=== PATIENT | male | born 1980 ===

== ENCOUNTER 2017-03-17 16:06 | Emergency (ER) | payer MEDICAID, OTHER ==
[2017-03-17 16:10] VITALS: BP 149/74; PULSE 72; RESP 16; TEMP 98.3; O2SAT 100
--- NOTE | 2017-03-17 16:37 | C.PDOC ---
History Of Present Illness 37M presents req detox from rx opioids. he said he has been given suboxone and roxycodone for years and says his doctor "cut me off" today and rec detox. Time Seen by Provider: 03/17/17 16:36 Chief Complaint (Nursing): Substance Abuse Past Medical History Vital Signs: Last Vital Signs Temp 98.3 F 03/17/17 16:10 Pulse 72 03/17/17 16:10 Resp 16 03/17/17 16:10 BP 149/74 03/17/17 16:10 Pulse Ox 100 03/17/17 16:37 - Medical History PMH: Back Problems (herniated/bulging discs) Family History: States: Other Other Family History: nc - Social History Hx Alcohol Use: No Hx Substance Use: Yes - Immunization History Hx Tetanus Toxoid Vaccination: No Hx Influenza Vaccination: No Hx Pneumococcal Vaccination: No Review Of Systems Constitutional: Negative for: Fever Cardiovascular: Negative for: Chest Pain Respiratory: Negative for: Cough, Shortness of Breath Gastrointestinal: Negative for: Vomiting Psych: Negative for: Suicidal ideation Physical Exam - Physical Exam Appears: Well, Non-toxic, No Acute Distress Skin: Warm, Dry Cardiovascular: Rhythm Regular Respiratory: No Decreased Breath Sounds, No Accessory Muscle Use Neurological/Psych: Oriented x3, Normal Motor, Normal Sensation Gait: Steady ED Course And Treatment O2 Sat by Pulse Oximetry: 100 Medical Decision Making Medical Decision Making: 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 Disposition - Disposition Disposition: HOME/ ROUTINE Disposition Time: 16:53 Condition: STABLE Forms: [employer] (Yi) - Clinical Impression Clinical Impression: Opioid abuse
== END 2017-03-17 17:35 | disposition home or self-care (01) ==
LOC: C.ER 16:06
DX: F11.10 Opioid abuse, uncomplicated (principal)

== ENCOUNTER 2017-03-19 13:15 | Inpatient (IN) | payer MEDICAID, OTHER ==
[2017-03-19 14:27] LABS: BASO # 0.1 K/uL (0.0-0.2); BASO % 0.6 % (0.0-2.0); EOS % 0.1 % (0.0-4.0); HEMATOCRIT 47.8 % (35.0-51.0); LYMPH # 1.1 K/uL (1.0-4.3); LYMPH % 13.5 % (20.0-40.0); MEAN CELL VOLUME 83.5 fL (80.0-94.0); MEAN CORPUSCULAR HEMOGLOBIN 28.4 pg (27.0-31.0); MEAN PLATELET VOLUME 8.2 fL (7.2-11.7); MONO # 0.4 K/uL (0.0-0.8); MONO % 4.8 % (0.0-10.0); RED CELL DISTRIBUTION WIDTH 14.4 % (11.5-14.5); WHITE BLOOD COUNT 8.5 K/uL (4.8-10.8)
[2017-03-19 14:44] LABS: CHLORIDE 106 mmol/L (98-107); POTASSIUM 3.7 mmol/L (3.6-5.2); SODIUM 145 mmol/L (132-148)
[2017-03-19 14:46] LABS: ALB/GLOB RATIO 1.5 (1.0-2.1); ALKALINE PHOSPHATASE 81 U/L (38-126); AST/SGOT 23 U/L (17-59); BILIRUBIN,TOTAL 0.9 mg/dL (0.2-1.3); CARBON DIOXIDE 22 mmol/L (22-30); GFR AFRICAN-AMERICAN > 60; TOTAL PROTEIN 7.5 g/dL (6.3-8.3)
[2017-03-19 14:47] LABS: ALCOHOL SERUM < 10 mg/dl (0-10); ALT/SGPT 29 U/L (21-72); BLOOD UREA NITROGEN 10 mg/dL (9-20); CALCIUM 9.9 mg/dl (8.6-10.4); GLUCOSE,RANDOM 91 mg/dL (75-110)
[2017-03-19 15:08] LABS: RBC URINE 4 /hpf (0-3); URINE BACTERIA RARE (<OCC); URINE BILIRUBIN 1+ (NEGATIVE); URINE BLOOD NEGATIVE (NEGATIVE); URINE COLOR Amber (YELLOW); URINE GLUCOSE (UA) NORMAL (Normal); URINE KETONE 1+ mg/dL (NEGATIVE); URINE LEUKOCYTE ESTERASE NEG Leu/uL (Negative); URINE PROTEIN 2+ mg/dL (NEGATIVE); URINE UROBILINOGEN NORMAL mg/dL (0.2-1.0); WBC URINE 1 /hpf (0-5)
--- NOTE | 2017-03-19 15:36 | C.PDOC ---
History Of Present Illness Pt is here requesting detox from Opioid pills. He states that his last dose was 3 days ago and that he is having withdrawal symptoms. Time Seen by Provider: 03/19/17 13:57 Chief Complaint (Nursing): Substance Abuse Past Medical History Reviewed: Historical Data, Nursing Documentation, Vital Signs Vital Signs: Last Vital Signs Temp 98.5 F 03/19/17 13:25 Pulse 60 03/19/17 15:16 Resp 18 03/19/17 15:16 BP 118/61 03/19/17 15:16 Pulse Ox 97 03/19/17 15:36 - Medical History PMH: Back Problems (herniated/bulging discs) Surgical History: No Surg Hx Family History: States: Unknown Family Hx - Social History Hx Tobacco Use: Yes Hx Alcohol Use: No Hx Substance Use: Yes - Immunization History Hx Tetanus Toxoid Vaccination: No Hx Influenza Vaccination: No Hx Pneumococcal Vaccination: No Review Of Systems Except As Marked, All Systems Reviewed And Found Negative. Constitutional: Positive for: Malaise. Negative for: Fever Cardiovascular: Negative for: Chest Pain Respiratory: Negative for: Shortness of Breath Gastrointestinal: Positive for: Nausea, Vomiting, Abdominal Pain, Diarrhea Genitourinary: Negative for: Dysuria Musculoskeletal: Negative for: Neck Pain Skin: Negative for: Rash Neurological: Negative for: Weakness, Numbness, Seizures Physical Exam - Physical Exam Appears: Non-toxic, No Acute Distress, Other (Uncomfortable) Skin: Normal Color, Warm, Dry, No Rash Head: Atraumatic, Normacephalic Eye(s): bilateral: Normal Inspection, PERRL, EOMI Neck: Normal ROM, Supple Cardiovascular: Rhythm Regular Respiratory: Normal Breath Sounds, No Accessory Muscle Use Gastrointestinal/Abdominal: Soft, No Distention Back: No CVA Tenderness Extremity: Normal ROM Neurological/Psych: Oriented x3, Normal Motor, Normal Sensation ED Course And Treatment - Laboratory Results Result Diagrams: 03/19/17 14:22 03/19/17 14:22 Lab Interpretation: No Acute Changes O2 Sat by Pulse Oximetry: 97 Pulse Ox Interpretation: Normal Progress Note: Pt is medically stable for detox admission. Reassessment Condition: Improved Disposition Counseled Patient/Family Regarding: Studies Performed, Diagnosis - Disposition Disposition: HOSPITALIZED Disposition Time: 15:53 Condition: STABLE - Clinical Impression Clinical Impression: Opioid dependence Decision To Admit - Pt Status Changed To: Hospital Disposition Of: Inpatient - Admit Certification Admit to Inpatient:: After my assessment, the patient will require hospitalization for at least two midnights. This is because of the severity of symptoms shown, intensity of services needed, and/or the medical risk in this patient being treated as an outpatient. - InPatient: Physician Admission Certification: I certify that this patient requires 2 or more midnights of care for the following reason:: Detox. - . Bed Request Type: Detox Admitting Physician: Milagro Rasmussen Patient Diagnosis: Opioid dependence
[2017-03-19] MEDS ORDERED: Aluminum Hydroxide/Magnesium Hydroxide Susp (30 mL) PO PRN (16:18)
--- NOTE | 2017-03-19 16:36 | PCM.BM ---
<Liliana Coulter - Last Filed: 03/19/17 16:34> Treatment Plan Problems - Problems identified on initial assessmt Potential for opiate withdrawal Date Initiated: 03/19/17 Time Initiated: 16:35 Assessment reference: NA Status: Active Priority: 1 Treatment assets and liabiliti Patient Assests: negotiates basic needs, cognitively intact Patient Liabilities: substance abuse - Milieu Protocol Maintain good personal hygiene: daily Encourage regular showers, daily Remind patient to perform daily oral care, daily Assist patient to perform ADL's Conduct patient checks and document Observation sheet: Q15 minutes Maintain personal safety: every shift Educate patient to report safety concerns to staff, every shift Monitor environment for contraband/sharps Medication safety: Monitor for expected outcome, potential side effects: every shift, Assess barriers to learning: every shift, Assess readiness for medication education: every shift <Milagro Rasmussen - Last Filed: 03/20/17 13:34> - Diagnosis (1) Opioid dependence Status: Acute Interventions: 03/20/17 13:34 * Assess 7x/week regarding severity of withdrawal * Educate regarding risks, benefits, side effects and alternatives of medications * Use Motivational Interviewing for abstinence * Use CBT for relapse prevention * Medication management for withdrawal symptoms * Encourage medication assisted treatment * <Dorothy Fisher - Last Filed: 03/20/17 15:08> Family Contact Family involvement: Jeanney/SO not involved Family contact: Patient declines to allow family contact at present - Goals for Treatment Patient goals for treatment: Complete detox and transition to outpatient treatment. Discharge/Continuing Care - Education Needs Education Needs: Patient Medication, Patient Diagnosis/Disease Process, Patient Coping Skills, Patient Anger Management skills, Patient Placement options, Patient Community resources - Discharge Discharge Criteria: No longer exhibiting s/s of withdrawal, Reduction of target symptoms Discharge to:: With Family - Treatment Team Participation Patient/Family/SO Statement: 03/20/17 15:09 "I gotta go back to work so I need outpatient". Discussed with Family/SO: No Was Patient/Family/SO present at Treatment Team Meeting: Yes <Pk Rivas - Last Filed: 03/21/17 15:45> - Diagnosis (1) Opioid dependence Status: Acute Interventions: 03/20/17 13:34 * Assess 7x/week regarding severity of withdrawal * Educate regarding risks, benefits, side effects and alternatives of medications * Use Motivational Interviewing for abstinence * Use CBT for relapse prevention * Medication management for withdrawal symptoms * Encourage medication assisted treatment * 03/21/17 15:45 (2) Cannabis use disorder, mild, abuse Status: Acute
[2017-03-19] MEDS ORDERED: Buprenorphine Hydrochloride 2 mg SL ONE ×2 (16:58→18:30)
[2017-03-20] MEDS: Buprenorphine Hydrochloride 2 mg SL SCH (10:38)
--- NOTE | 2017-03-20 11:42 | PCM.PSYCH ---
Initial Psychiatric Evaluation - Initial Psychiatric Evaluation Type of Admission: Voluntary Legal Status: Capacity Chief Complaint (in patient's own words): "I want to stop this" History of Present Illness and Precipitating Events: The patient is seen, chart reviewed and case discussed. 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 The patient states that he had been using high-dose painkillers both from a doctor and from the streets for 5-6 years, until he started Suboxone 2 years ago. Currently he is on 8 mg and he wants to come off because his doctor stopped giving him anymore. He feels withdrawal symptoms. He smokes half pack of cigarettes, occasional marijuana but denies all other drug and alcohol use. This is his first detox and he has never been to rehabilitation or NA. He denies psych symptoms Past psych history: Denies Family psych history: Denies Medical history: Herniated disc. Current Medications: Active Medications Generic Name Dose Route Start Last Admin Trade Name Quique PRN Reason Stop Dose Admin Al Hydrox/Mg Hydrox/Simethicone 30 ml 03/19/17 16:18 Maalox 30 Ml PO TID PRN Indigestion / Heartburn Buprenorphine HCl 8 mg 03/20/17 10:00 03/20/17 10:38 Subutex SL 03/24/17 09:59 8 mg DAILY JEAN Administration Taper Clonidine HCl 0.1 mg 03/19/17 16:18 Catapres PO Q8 PRN COWS Score More or Equal to 5 Gabapentin 300 mg 03/19/17 18:00 03/20/17 10:39 Neurontin PO 300 mg BID JEAN Administration Hydroxyzine HCl 50 mg 03/19/17 16:19 03/20/17 10:39 Atarax PO 50 mg Q6H PRN Administration Anxiety Ibuprofen 600 mg 03/19/17 16:19 Motrin Tab PO Q6H PRN Pain, moderate (4-7) Loperamide HCl 2 mg 03/19/17 16:18 Imodium PO Q8 PRN Diarrhea Ondansetron HCl 4 mg 03/19/17 16:18 Zofran Tab PO Q8 PRN Nausea/Vomiting Trazodone HCl 100 mg 03/19/17 16:19 03/19/17 21:21 Desyrel PO 100 mg HS PRN Administration Insomnia Past Psychiatric History - Past Psychiatric History Previous Treatment History: None Pertinent Medical Hx (Current Medical&Sleep Prob, Allergies): Allergies Allergy/AdvReac Type Severity Reaction Status Date / Time No Known Allergies Allergy Verified 03/19/17 13:24 No Known Home Med 03/19/17 Review of Systems - Neurological Neurological: UNREMARKABLE - Psychiatric Psychiatric: Abnormal Sleep Pattern, Anxiety. absent: Depression, Hallucinations, Homicidal Ideation, Suicidal Ideation Mental Status Examination - Personal Presentation Personal Presentation: Looks stated age - Affect Affect: Constricted - Motor Activity Motor Activity: Calm - Reliability in Providing Information Reliability in Providing Information: Good - Speech Speech: Organized, Relevant - Mood Mood: Anxious - Formal Thought Process Formal Thought Process: No Impairment - Cognitive Functions Orientation: Person, Place, Situation, Time Sensorium: Alert Attention/Concentration: Attentive Estimate of Intelligence: Average Judgement: Intact, as evidence by: Insight regarding need for hospitalization Memory: Recent intact, as evidence by: Ability to recall events of the day, Remote intact, as evidenced by: Abilit to recall sig. life events - Risk Risk: Withdrawal, Diminished functioning - Strength & Assets Inventory Strength & Assets Inventory: Employment history, Cooperative - Limitations Limitations: Other DSM 5 DX - DSM 5 DSM 5 Diagnosis: Opioid withdrawal Opioid use disorder, severe Cocaine use d/o - moderate Tobacco use d/o -moderate - Recommended/Plan of Treatment Treatment Recommendations and Plan of Treatment: Subutex detox As needed medications Gabapentin for augmentation Attend groups and activities Supportive therapy and psychoeducation [place] for abstinence CBT for relapse prevention Encourage MAT Refer to rehab or IOP Attend self-help groups as well 34 min Projected ELOS: 4-5 days Prognosis: good with treatment - Smoking Cessation Smoking Cessation Initiated: Yes
[2017-03-21] MEDS: Buprenorphine Hydrochloride 2 mg SL SCH (09:30)
--- NOTE | 2017-03-21 15:49 | PCM.PYCHPN ---
Psychiatric Progress Note - Psychiatric Progress Note Patient seen today, length of contact: 15 minutes Patient Chief Complaint: I'm feeling much better Problems Identified/Issues Discussed: Patient seen. Chart reviewed. Case discussed with staff. Issues related to illness and treatment were discussed with the patient. Reported compliant with treatment with no adverse affects. Tolerating treatment very well. Reported feeling much better, has better sleep and less withdrawal symptoms. At the time of evaluation, patient was awake alert oriented 3. Had no delusions , no auditory or visual hallucinations, no suicidal ideations or homicidal ideations. Medical Problems: Herniated disc Diagnostic Results: Reviewed DSM 5 Symptoms Update: Improving with treatment Medication Change: No Medical Record Reviewed: Yes Mental Status Examination - Cognitive Function Orientation: Person, Place, Situation, Time Memory: Intact Attention: WNL Concentration: WNL Association: WNL Fund of Knowledge: [facility] Decription of patient's judgement and insights: Fair - Mood Mood: Neutral - Affect Affect: Other (Appropriate) - Speech Speech: Appropriate - Formal Thought Process Formal Thought Process: No Impairment Psychotic Thoughts and Behaviors: None - Suicidal Ideation Suicidal Ideation: No - Homicidal Ideation Homicidal Ideation: No Goal/Treatment Plan - Goal/Treatment Plan Need for Continued Stay: Remain at risks for inpatient hospitalization, Discharge may exacerbated symptoms, Severe functional impairment Progress Toward Problem(s) and Goals/Treatment Plan: Patient education Supportive therapy Continue treatment as before [facility] from the hospital for follow-up care. Estimated Date of D/C: 03/16/17 - Smoking Cessation Smoking Cessation Initiated: Yes
[2017-03-22] MEDS: Buprenorphine Hydrochloride 2 mg SL SCH (09:40)
--- NOTE | 2017-03-22 13:06 | PCM.PYCHPN ---
Psychiatric Progress Note - Psychiatric Progress Note Patient seen today, length of contact: 15 minutes Patient Chief Complaint: I'm feeling much better. Problems Identified/Issues Discussed: Patient seen. Chart reviewed. Case discussed with staff. Issues related to illness and treatment were discussed with the patient. Reported compliant with treatment with no adverse affects. Tolerating treatment very well. Reported feeling much better, has better sleep and less withdrawal symptoms. At the time of evaluation, patient was awake alert oriented 3. Had no delusions , no auditory or visual hallucinations, no suicidal ideations or homicidal ideations. Medical Problems: Herniated disc Diagnostic Results: Reviewed DSM 5 Symptoms Update: Improving with treatment Medication Change: No Medical Record Reviewed: Yes Mental Status Examination - Cognitive Function Orientation: Person, Place, Situation, Time Memory: Intact Attention: WNL Concentration: WNL Association: WNL Fund of Knowledge: [facility] Decription of patient's judgement and insights: Fair - Mood Mood: Neutral - Affect Affect: Other (Appropriate) - Speech Speech: Appropriate - Formal Thought Process Formal Thought Process: No Impairment Psychotic Thoughts and Behaviors: None - Suicidal Ideation Suicidal Ideation: No - Homicidal Ideation Homicidal Ideation: No Goal/Treatment Plan - Goal/Treatment Plan Need for Continued Stay: Remain at risks for inpatient hospitalization, Discharge may exacerbated symptoms, Severe functional impairment Progress Toward Problem(s) and Goals/Treatment Plan: Patient education Supportive therapy Continue treatment as before [facility] discharge from the hospital for follow-up care. Estimated Date of D/C: 03/23/17 - Smoking Cessation Smoking Cessation Initiated: Yes
[2017-03-23] MEDS: Buprenorphine Hydrochloride 2 mg SL SCH (09:23)
--- NOTE | 2017-03-23 16:00 | PCM.PYCHPN ---
Psychiatric Progress Note - Psychiatric Progress Note Patient seen today, length of contact: 15 minutes Patient Chief Complaint: "I feel a lot better" Problems Identified/Issues Discussed: Pt is seen, chart reviewed, case discussed with staff. Pt is compliant with medications and reports no side effects. Pt currently feels well and denies symptoms of withdrawal. Support and psychoeducation given, CBT and VT used briefly. After care discussed. Pt is ready for discharge tomorrow. Medication Change: Yes (Detox changes meds daily) Medical Record Reviewed: Yes Mental Status Examination - Cognitive Function Orientation: Person, Place, Situation, Time Memory: Intact Attention: WNL Concentration: WNL Association: [facility] Fund of Knowledge: WN - Mood Mood: Neutral - Affect Affect: Other (Appropriate) - Speech Speech: Appropriate - Formal Thought Process Formal Thought Process: No Impairment - Suicidal Ideation Suicidal Ideation: No - Homicidal Ideation Homicidal Ideation: No Goal/Treatment Plan - Goal/Treatment Plan Need for Continued Stay: Remain at risks for inpatient hospitalization, Discharge may exacerbated symptoms, Severe functional impairment Progress Toward Problem(s) and Goals/Treatment Plan: Opioid use disorder, severe Support and psychoeducation given VT for abstinence and CBT for relapse prevention Consider and encourage MAT Attend groups and activities daily Opioid withdrawal Support and psychoeducation given Continue medications as prescribed Stop Subutex taper tomorrow Cocaine use disorder, moderate Support and psychoeducation given VT for abstinence and CBT for relapse prevention Attend groups and activities daily Tobacco use disorder, moderate Support and psychoeducation given VT for abstinence and CBT for relapse prevention Consider and encourage MAT Attend groups and activities daily Estimated Date of D/C: 03/24/17 - Smoking Cessation Smoking Cessation Initiated: Yes
[2017-03-24 06:16] VITALS: RESP 18
--- NOTE | 2017-03-24 09:32 | PCM.PYCHDC ---
Mental Status Examination - Mental Status Examination Orientation: Person, Place, Situation, Time Memory: Intact Mood: Neutral Affect: Broad Speech: Appropriate Attention: WNL Concentration: WNL Association: WNL Fund of Knowledge: WNL Formal Thought Process: No Impairment Suicidal Ideation: No Current Homicidal Ideation?: No Discharge Summary - Discharge Note Reason for Hospitalization: Pt was admitted 03/19/17 for addiction to painkillers and desire for detox Psychiatric History (includes Medical, Family, Personal Hx): No history of detox or psychiatric illness Consultations:: List each consultation separately and include: 1. Reason for request. 2. Findings. 3. Follow-up Summary of Hospital Course include:: 1. Description of specific treatment plan utilized for patients during their course of treatmen. 2. Summarize the time- course for resolution of acute symptoms and/or regressed behaviors. 3. Describe issues identified and worked on during hospitalization. 4. Describe medication utilized. 5. Describe medical problems identified and treated. 6. Reassessment of suicide risk Summary of Hospital Course: Pt was admitted and started on treatment with psychotherapy, support, psychoeducation and medications. ME and CBT used. Pt attended groups and activities as well as milieu therapy. All the risks and benefits of medications were discussed and pt understood and agreed. Pt improved with the treatment provided. He currently reports that he "feels good" and expresses no complaints. After care discussed. Pt plans to attend [facility] in [place] and will also follow up with inpatient rehab in [place]. - Final Diagnosis (DSM 5) Condition upon Discharge: STABLE DSM 5: Opioid withdrawal Opioid use disorder, severe Cocaine use d/o - moderate Tobacco use d/o -moderate Disposition: REHAB FACILITY/REHAB UNIT Follow-up Treatment Plan: Continue below medications after discharge. Follow after care as discussed. Use relapse prevention skills. Return to ER or call 911 if suicidal, homicidal or symptoms relapse. Stay away from stress, alcohol and drugs. See primary doctor once a year. Prescriptions/Medication Reconciliation: Gabapentin [Neurontin] 300 mg PO BID #60 cap hydrOXYzine HCl [Atarax] 50 mg PO BID PRN #60 tab PRN Reason: Anxiety traZODone [Desyrel] 100 mg PO HS PRN #30 tab PRN Reason: Insomnia - Smoking Cessation Smoking Cessation Medication prescribed: No - Antipsychotic Medications Pt discharged on 2 or more routine antipsychotic medications: No
[2017-03-24] MEDS ORDERED: Buprenorphine Hydrochloride 2 mg SL ONE (09:43)
[2017-03-24 09:52] VITALS: BP 144/71; PULSE 81; TEMP 98; O2SAT 100
== END 2017-03-24 11:30 | disposition home or self-care (01) | DRG 895 ==
LOC: C.ER 13:15 → C.7D 15:54
PROVIDERS: ADMIT Psychiatry & Neurology Psychiatry; ATTEND Psychiatry & Neurology Psychiatry
PROC: HZ2ZZZZ Detoxification Services for Substance Abuse Treatment (ICD-10-PCS; principal; 2017-03-20)
PROC: HZ52ZZZ Individual Psychotherapy for Substance Abuse Treatment, Cognitive-Behavioral (ICD-10-PCS; 2017-03-20)
PROC: HZ42ZZZ Group Counseling for Substance Abuse Treatment, Cognitive-Behavioral (ICD-10-PCS; 2017-03-20)
PROC: HZ59ZZZ Individual Psychotherapy for Substance Abuse Treatment, Supportive (ICD-10-PCS; 2017-03-20)
PROC: HZ56ZZZ Individual Psychotherapy for Substance Abuse Treatment, Psychoeducation (ICD-10-PCS; 2017-03-20)
PROC: HZ46ZZZ Group Counseling for Substance Abuse Treatment, Psychoeducation (ICD-10-PCS; 2017-03-20)
DX: F11.23 Opioid dependence with withdrawal (principal); F14.10 Cocaine abuse, uncomplicated; F17.210 Nicotine dependence, cigarettes, uncomplicated; F12.10 Cannabis abuse, uncomplicated

== ENCOUNTER 2017-09-18 15:01 | Inpatient (IN) | payer MEDICAID, SELFPAY ==
[2017-09-18 15:11] VITALS: BMI 23.7
[2017-09-18 16:04] LABS: BASO # 0.1 K/uL (0.0-0.2); BASO % 0.5 % (0.0-2.0); EOS # 0.2 K/uL (0.0-0.7); EOS % 1.2 % (0.0-4.0); LYMPH # 3.4 K/uL (1.0-4.3); LYMPH % 20.6 % (20.0-40.0); MEAN CELL VOLUME 83.2 fL (80.0-94.0); MEAN CORPUSCULAR HEMOGLOBIN 27.8 pg (27.0-31.0); MEAN CORPUSCULAR HGB CONC 33.5 g/dL (33.0-37.0); MEAN PLATELET VOLUME 8.3 fL (7.2-11.7); MONO # 1.3 K/uL (0.0-0.8); MONO % 8.2 % (0.0-10.0); NEUT # 11.4 K/uL (1.8-7.0); NEUT % 69.5 % (50.0-75.0); NRBC % 0.1 % (0.0-2.0); RBC 5.74 Mil/uL (4.40-5.90); RED CELL DISTRIBUTION WIDTH 13.7 % (11.5-14.5); WHITE BLOOD COUNT 16.4 K/uL (4.8-10.8)
--- NOTE | 2017-09-18 16:08 | C.PDOC ---
History Of Present Illness 37 year old male presents to the ED requesting detox for opioids. Patient sattes his last use was 2 days ago. Patient denies SI/HI, hallucinations, CP, SOB, abdominal pain. Time Seen by Provider: 09/18/17 15:45 Chief Complaint (Nursing): Substance Abuse History Per: Patient History/Exam Limitations: no limitations Onset/Duration Of Symptoms: Days Current Symptoms Are (Timing): Still Present Suicide/Self Injury Attempted (Context): None Modifying Factor(s): Other (Opioids) Associated Symptoms: denies: Depression, Suicidal Thoughts, Suicidal Plan Involuntary Hold By: None Recent travel outside of the [place]: No Additional History Per: Patient Past Medical History Reviewed: Historical Data, Nursing Documentation, Vital Signs Vital Signs: Last Vital Signs Temp 98.4 F 09/18/17 20:53 Pulse 60 09/18/17 20:53 Resp 20 09/18/17 20:53 BP 113/69 09/18/17 20:53 Pulse Ox 98 09/18/17 20:53 - Medical History PMH: Back Problems (herniated/bulging discs) Denies: Diabetes, Hepatitis, HIV, HTN, Seizures, Sexually Transmitted Disease Surgical History: No Surg Hx - [facility] DETOXIFICATION SERVICES FOR SUBSTANCE ABUSE TREATMENT (03/19/17) GROUP [employer] FOR SUBSTANCE ABUSE TREATMENT, PSYCHOEDUCATION (03/19/17) GROUP [employer]ERS FOR SUBSTANCE ABUSE, COGNITIVE BEHAVIORAL (03/19/17) INDIV PSYCHOTHERAPY FOR SUBSTANCE ABUSE TREATMENT, SUPPORT (03/19/17) INDIV PSYCHOTHERAPY FOR SUBSTANCE ABUSE, COGNITIV BEHAVIORAL (03/19/17) INDIV PSYCHOTHERAPY FOR SUBSTANCE ABUSE, PSYCHOEDUCATION (03/19/17) Family History: States: Unknown Family Hx - Social History Hx Tobacco Use: Yes Hx Alcohol Use: No Hx Substance Use: Yes - Immunization History Hx Tetanus Toxoid Vaccination: No Hx Influenza Vaccination: No Hx Pneumococcal Vaccination: No Review Of Systems Except As Marked, All Systems Reviewed And Found Negative. Psych: Negative for: Depression, Suicidal ideation Physical Exam - Physical Exam Appears: Non-toxic, No Acute Distress Skin: Normal Color, Warm, Dry Head: Atraumatic, Normacephalic Eye(s): bilateral: Normal Inspection Nose: No Discharge Oral Mucosa: Moist Neck: Normal ROM, Supple Chest: Symmetrical Cardiovascular: Rhythm Regular, No Murmur Respiratory: Normal Breath Sounds, No Rales, No Rhonchi, No Wheezing Gastrointestinal/Abdominal: Soft, No Tenderness, No Guarding, No Rebound Extremity: Normal ROM, No Tenderness, No Swelling Neurological/Psych: Oriented x3 ED Course And Treatment - Laboratory Results Result Diagrams: 09/18/17 15:56 09/18/17 15:56 O2 Sat by Pulse Oximetry: 96 (On RA) Pulse Ox Interpretation: Normal Medical Decision Making Medical Decision Making: Impression: detox Plan: * Labs * UA * CXR Patient is medically cleared. non specific luekoctyosis no e/o of infection. urine cxr neg. no cardiopulm complaints. abd soft no ttp. no flank, spine ttp. neuro intact. suspect inflammatory. Disposition - Disposition Disposition: HOSPITALIZED Disposition Time: 23:14 Condition: STABLE - Clinical Impression Clinical Impression: Drug abuse, Leukocytosis - Scribe Statement The provider has reviewed the documentation as recorded by the Scribe Pablo Young All medical record entries made by the Scribe were at my direction and personally dictated by me. I have reviewed the chart and agree that the record accurately reflects my personal performance of the history, physical exam, medical decision making, and the department course for this patient. I have also personally directed, reviewed, and agree with the discharge instructions and disposition. Decision To Admit - Pt Status Changed To: Hospital Disposition Of: Inpatient - Admit Certification Admit to Inpatient:: After my assessment, the patient will require hospitalization for at least two midnights. This is because of the severity of symptoms shown, intensity of services needed, and/or the medical risk in this patient being treated as an outpatient. - InPatient: Physician Admission Certification: I certify that this patient requires 2 or more midnights of care for the following reason:: need detox - . Bed Request Type: Telemetry Admitting Physician: Pk Rivas Patient Diagnosis: Drug abuse, Leukocytosis
[2017-09-18 16:20] LABS: ALB/GLOB RATIO 1.4 (1.0-2.1); ALBUMIN 4.9 g/dL (3.5-5.0); ALT/SGPT 24 U/L (21-72); AST/SGOT 30 U/L (17-59); BLOOD UREA NITROGEN 24 mg/dL (9-20); CALCIUM 8.4 mg/dl (8.6-10.4); GFR AFRICAN-AMERICAN > 60; GFR NON-AFRICAN AMERICAN > 60; URINE BACTERIA RARE (<OCC); URINE BILIRUBIN NEGATIVE (NEGATIVE); URINE BLOOD NEGATIVE (NEGATIVE); URINE CLARITY Clear (Clear); URINE COLOR Yellow (YELLOW); URINE GLUCOSE (UA) NORMAL (Normal); URINE LEUKOCYTE ESTERASE NEG Leu/uL (Negative); URINE UROBILINOGEN NORMAL mg/dL (0.2-1.0)
[2017-09-18 16:21] LABS: URINE PROTEIN 1+ mg/dL (NEGATIVE)
[2017-09-18] MEDS ORDERED: Potassium Chloride 20 mEq ER Tab PO STA (16:22)
[2017-09-18 16:25] LABS: BARBITURATES, UR NEGATIVE (NEGATIVE); BENZODIAZEPINES, UR NEGATIVE (NEGATIVE); PHENCYCLIDINE, UR NEGATIVE (NEGATIVE)
[2017-09-18 16:27] LABS: OPIATES, UR POSITIVE (NEGATIVE)
[2017-09-18] MEDS ORDERED: Potassium Chloride 20 mEq ER Tab PO ONE (16:28)
--- NOTE | 2017-09-18 16:53 | RAD ---
HISTORY: detox COMPARISON: No prior. TECHNIQUE: Chest PA and lateral FINDINGS: LUNGS: No active pulmonary disease. PLEURA: No significant pleural effusion identified. No pneumothorax apparent. CARDIOVASCULAR: Normal. OSSEOUS STRUCTURES: No significant abnormalities. VISUALIZED UPPER ABDOMEN: Normal. OTHER FINDINGS: None. IMPRESSION: No active disease.
--- NOTE | 2017-09-18 18:28 | PCM.BM ---
Treatment Plan Problems - Problems identified on initial assessmt potiential for opiate withdrawal Date Initiated: 09/18/17 Time Initiated: 18:27 Assessment reference: NA Status: Active Treatment assets and liabiliti Patient Assests: physically healthy, negotiates basic needs, cognitively intact Patient Liabilities: physical pain, substance abuse - Milieu Protocol Maintain good personal hygiene: daily Encourage regular showers, daily Remind patient to perform daily oral care, daily Assist patient to perform ADL's Maintain personal safety: every shift Educate patient to report safety concerns to staff, every shift Monitor environment for contraband/sharps Medication safety: Monitor for expected outcome, potential side effects: every shift, Assess barriers to learning: every shift, Assess readiness for medication education: every shift
[2017-09-18] MEDS ORDERED: Buprenorphine Hydrochloride 2 mg SL ONE ×2 (19:30→20:41)
[2017-09-18] MEDS ORDERED: Aluminum Hydroxide/Magnesium Hydroxide Susp (30 mL) PO PRN (20:33)
[2017-09-19] MEDS ORDERED: Buprenorphine Hydrochloride 2 mg SL SCH (13:00)
[2017-09-19] MEDS ORDERED: Buprenorphine Hydrochloride 2 mg SL ONE ×2 (13:00→13:30)
--- NOTE | 2017-09-19 18:33 | PCM.PSYCH ---
Initial Psychiatric Evaluation - Initial Psychiatric Evaluation Type of Admission: Voluntary Legal Status: Capacity Chief Complaint (in patient's own words): I need help for my opiate use. History of Present Illness and Precipitating Events: Patient is a 37 years old, single, unemployed, male with no previous psychiatric history was admitted for the treatment of withdrawing from opiates and cannabis Patient reported he started using Roxicodone 5 years ago and was taking 4-5 pills daily. Last use reported 3 days ago. Longest period of abstinence was 10 weeks after his last discharge from [facility] patient went to [facility] rehabilitation after discharge from the hospital. After discharge from [facility]] in February 2017 patient relapsed again. Patient has history of taking Suboxone for a few months in the past. He was getting Suboxone from his PCP. Giving him Suboxone because of dirty urine. Patient was also using cannabis 1-2 times per month. Last used reported 2 weeks ago. Denied using any other drugs including alcohol and cocaine. Patient also smokes half pack of cigarettes daily and is requesting for nicotine patch. Patient was born in [place] has high school graduation and is working. Patient never and has one day and they have years old daughter who lives with her mother. His height is 6 feet and weight is 175 pounds. Current Medications: Active Medications Generic Name Dose Route Start Last Admin Trade Name Freq PRN Reason Stop Dose Admin Acetaminophen 650 mg 09/19/17 14:21 09/19/17 16:54 Tylenol 325mg Tab PO 650 mg Q6 PRN Administration Pain, moderate (4-7) Al Hydrox/Mg Hydrox/Simethicone 30 ml 09/18/17 20:33 Maalox 30 Ml PO TID PRN Indigestion / Heartburn Buprenorphine HCl 6 mg 09/19/17 13:30 Subutex SL 09/22/17 13:29 .TAPER JEAN Taper Clonidine HCl 0.1 mg 09/18/17 20:33 Catapres PO Q8 PRN COWS Score More or Equal to 5 Dicyclomine HCl 10 mg 09/18/17 20:34 Bentyl PO Q6 PRN Other Gabapentin 300 mg 09/18/17 20:45 09/19/17 18:11 Neurontin PO 300 mg BID JEAN Administration Hydroxyzine HCl 50 mg 09/19/17 12:20 09/19/17 14:19 Atarax PO 50 mg Q6 PRN Administration Anxiety Ibuprofen 400 mg 09/18/17 20:35 Motrin Tab PO Q6 PRN Pain, moderate (4-7) Loperamide HCl 2 mg 09/18/17 20:33 Imodium PO Q8 PRN Diarrhea Nicotine 1 patch 09/19/17 10:00 09/19/17 09:28 Nicoderm Cq TD 1 patch DAILY JEAN Administration Ondansetron HCl 4 mg 09/18/17 20:33 Zofran Tab PO Q8 PRN Nausea/Vomiting Trazodone HCl 50 mg 09/18/17 19:25 09/18/17 21:26 Desyrel PO 50 mg HS PRN Administration insomnia Past Psychiatric History - Past Psychiatric History Previous Treatment History: Inpatient Prior Professional Help: Detox [facility]: [facility] History of Abuse: None reported History of ETOH/Drug Use: See HPI History of Family Illness: None reported Pertinent Medical Hx (Current Medical&Sleep Prob, Allergies): Allergies Allergy/AdvReac Type Severity Reaction Status Date / Time No Known Allergies Allergy Verified 09/18/17 15:10 No Known Home Med 09/18/17 Review of Systems - Psychiatric Psychiatric: Anxiety, Other Mental Status Examination - Personal Presentation Personal Presentation: Looks stated age - Affect Affect: Other (Appropriate) - Motor Activity Motor Activity: Calm - Reliability in Providing Information Reliability in Providing Information: Fair - Speech Speech: Organized - Mood Mood: Anxious - Formal Thought Process Formal Thought Process: No Impairment Additional comments: None - Hallucinations/Delusions Hallucinations: Other (None reported) Delusions: Other - Obsessions/Compulsions Obsessions: None Compulsions: None - Cognitive Functions Orientation: Person, Place, Situation, Time Sensorium: Alert Attention/Concentration: Attentive Abstract Thinking: [place] Estimate of Intelligence: Average Judgement: Intact, as evidence by: Insight regarding need for hospitalization Memory: Recent intact, as evidence by: Ability to recall events of the day, Remote intact, as evidenced by: Ability to recall historical events - Risk Risk: Withdrawal, Diminished functioning - Strength & Assets Inventory Strength & Assets Inventory: Family support, Cooperative - Limitations Limitations: Other DSM 5 DX - DSM 5 DSM 5 Diagnosis: Opiate use disorder severe Cannabis use disorder moderate - Recommended/Plan of Treatment Treatment Recommendations and Plan of Treatment: Patient education Supportive therapy CBT for relapse prevention [place] for abstinence We will start Subutex for opiate withdrawal symptoms Other when necessary medications Patient wants to go [facility] follow-up care after discharge from the hospital Projected ELOS: 4-5 days - Smoking Cessation Smoking Cessation Initiated: Yes
[2017-09-20] MEDS: Buprenorphine Hydrochloride 2 mg SL SCH (10:51)
--- NOTE | 2017-09-20 22:25 | PCM.PYCHPN ---
Psychiatric Progress Note - Psychiatric Progress Note Patient seen today, length of contact: 15 Minutes Patient Chief Complaint: I'm feeling little better Problems Identified/Issues Discussed: Patient seen, chart reviewed, case discussed with the staff. Issues related to illness and treatment were discussed with the patient. Reported compliant with treatment with no adverse affects. Tolerating treatment very well. Reported feeling better, still has withdrawal symptoms. Mood reported as anxious. Affect appropriate. Encouraged time of evaluation, patient was awake alert oriented 3, had no delusions, no auditory or visual hallucinations, no suicidal ideations or homicidal ideations. Medical Problems: None reported Diagnostic Results: Reviewed DSM 5 Symptoms Update: Improving with treatment Medication Change: No Medical Record Reviewed: Yes Mental Status Examination - Cognitive Function Orientation: Person, Place, Situation, Time Memory: Intact Attention: WNL Concentration: WNL Association: WN Fund of Knowledge: [facility] Decription of patient's judgement and insights: Fair - Mood Mood: Anxious - Affect Affect: Other (Appropriate) - Speech Speech: Appropriate - Formal Thought Process Formal Thought Process: No Impairment Psychotic Thoughts and Behaviors: None - Suicidal Ideation Suicidal Ideation: No - Homicidal Ideation Homicidal Ideation: No Goal/Treatment Plan - Goal/Treatment Plan Need for Continued Stay: Remain at risks for inpatient hospitalization, Discharge may exacerbated symptoms, Severe functional impairment Progress Toward Problem(s) and Goals/Treatment Plan: Patient education Supportive therapy CBT for relapse prevention [place] for abstinence Continue treatment as before Patient [facility] care after discharge from the hospital Estimated Date of D/C: 09/22/17 - Smoking Cessation Smoking Cessation Initiated: Yes
[2017-09-21] MEDS: Buprenorphine Hydrochloride 2 mg SL SCH (09:07)
[2017-09-21] MEDS ORDERED: Buprenorphine Hydrochloride 2 mg SL ONE (16:30)
--- NOTE | 2017-09-21 19:40 | PCM.PYCHPN ---
Psychiatric Progress Note - Psychiatric Progress Note Patient seen today, length of contact: 15 Minutes Patient Chief Complaint: I'm feeling much better Problems Identified/Issues Discussed: Patient seen, chart reviewed, case discussed with the staff. Issues related to illness and treatment were discussed with the patient. Reported compliant with treatment with no adverse affects. Tolerating treatment very well. Reported feeling better, Mood reported as good. Affect appropriate. Encouraged time of evaluation, patient was awake alert oriented 3, had no delusions, no auditory or visual hallucinations, no suicidal ideations or homicidal ideations. Medical Problems: None reported Diagnostic Results: Reviewed DSM 5 Symptoms Update: Improving with treatment Medication Change: No Medical Record Reviewed: Yes Mental Status Examination - Cognitive Function Orientation: Person, Place, Situation, Time Memory: Intact Attention: WNL Concentration: WNL Association: WN Fund of Knowledge: [facility] Decription of patient's judgement and insights: Fair - Mood Mood: Neutral - Affect Affect: Other (Appropriate) - Speech Speech: Appropriate - Formal Thought Process Formal Thought Process: No Impairment Psychotic Thoughts and Behaviors: None - Suicidal Ideation Suicidal Ideation: No - Homicidal Ideation Homicidal Ideation: No Goal/Treatment Plan - Goal/Treatment Plan Need for Continued Stay: Remain at risks for inpatient hospitalization, Discharge may exacerbated symptoms, Severe functional impairment Progress Toward Problem(s) and Goals/Treatment Plan: Patient education Reported therapy CBT for relapse prevention [place] for abstinence Continue treatment as before Patient [facility] to [facility] after discharge from the hospital Estimated Date of D/C: 09/22/17 - Smoking Cessation Smoking Cessation Initiated: Yes
[2017-09-22] MEDS: Buprenorphine Hydrochloride 2 mg SL SCH (09:11)
[2017-09-22 10:19] VITALS: BP 127/75; PULSE 85; RESP 20; TEMP 97.5; O2SAT 100
--- NOTE | 2017-09-22 17:05 | PCM.PYCHDC ---
Mental Status Examination - Mental Status Examination Orientation: Person, Place, Situation, Time Memory: Intact Mood: Neutral Affect: Other (Appropriate) Speech: Appropriate Attention: WNL Concentration: WNL Association: WNL Fund of Knowledge: WNL Description of patient's judgement and insight: Fair Psychotic Thoughts and Behaviors: None Suicidal Ideation: No Current Homicidal Ideation?: No Discharge Summary - Discharge Note Reason for Hospitalization: Opiate use disorder Cannabis use disorder Laboratory Data: Reviewed Consultations:: List each consultation separately and include: 1. Reason for request. 2. Findings. 3. Follow-up Summary of Hospital Course include:: 1. Description of specific treatment plan utilized for patients during their course of treatmen. 2. Summarize the time- course for resolution of acute symptoms and/or regressed behaviors. 3. Describe issues identified and worked on during hospitalization. 4. Describe medication utilized. 5. Describe medical problems identified and treated. 6. Reassessment of suicide risk Summary of Hospital Course: Patient is a 37 years old, single, unemployed, male with no previous psychiatric history was admitted for the treatment of withdrawing from opiates and cannabis Patient reported he started using Roxicodone 5 years ago and was taking 4-5 pills daily. Last use reported 3 days ago. Longest period of abstinence was 10 weeks after his last discharge from [facility] patient went to [facility] after discharge from the hospital. After discharge from [facility] in February 2017 patient relapsed again. Patient has history of taking Suboxone for a few months in the past. He was getting Suboxone from his PCP. Giving him Suboxone because of dirty urine. Patient was also using cannabis 1-2 times per month. Last used reported 2 weeks ago. Denied using any other drugs including alcohol and cocaine. Patient also smokes half pack of cigarettes daily and is requesting for nicotine patch. Patient was born in [place] has high school graduation and is working. Patient never and has one day and they have years old daughter who lives with her mother. His height is 6 feet and weight is 175 pounds. During his stay in the hospital agent was treated with Subutex and other when necessary medications. Patient was attending groups and other activities on the unit. With the above treatment patient started feeling better and today ready for discharge from the hospital. At the time of evaluation and discharge, patient was awake alert oriented 3, denied any delusions, no auditory or visual hallucinations, no suicidal ideations or homicidal ideations. Patient was discharged in a stable condition. - Final Diagnosis (DSM 5) Condition upon Discharge: STABLE Disposition: HOME/ ROUTINE Follow-up Treatment Plan: Patient wants to go [facility] for [facility] after discharge from the hospital Prescriptions/Medication Reconciliation: Gabapentin [Neurontin] 300 mg PO BID #60 cap traZODone [Desyrel] 50 mg PO HS PRN #30 tab PRN Reason: insomnia - Smoking Cessation Smoking Cessation Medication prescribed: No - Antipsychotic Medications Pt discharged on 2 or more routine antipsychotic medications: No
== END 2017-09-22 10:35 | disposition home or self-care (01) | DRG 745 ==
LOC: C.ER 15:01 → C.7D 17:55
PROC: HZ52ZZZ Individual Psychotherapy for Substance Abuse Treatment, Cognitive-Behavioral (ICD-10-PCS; principal; 2017-09-18)
PROC: HZ2ZZZZ Detoxification Services for Substance Abuse Treatment (ICD-10-PCS; 2017-09-18)
PROC: HZ42ZZZ Group Counseling for Substance Abuse Treatment, Cognitive-Behavioral (ICD-10-PCS; 2017-09-18)
PROC: HZ59ZZZ Individual Psychotherapy for Substance Abuse Treatment, Supportive (ICD-10-PCS; 2017-09-18)
DX: F11.23 Opioid dependence with withdrawal (principal); D72.829 Elevated white blood cell count, unspecified; F12.90 Cannabis use, unspecified, uncomplicated; F17.210 Nicotine dependence, cigarettes, uncomplicated